=== PATIENT | female | born 1970 | race Caucasian/White ===

== ENCOUNTER 2019-10-19 13:10 | Observation (INO) ==
[2019-10-19 12:20] LABS: HEMATOCRIT 39.8 % (37.0-47.0); HEMOGLOBIN 13.2 g/dL (12.0-16.0); MCHC 33.2 g/dL (33-37); MCV 96.6 FL (81-99); MPV 10.3 FL (7.4-10.4); RBC 4.12 XMIL (4.2-5.4); RDW 12.8 % (11.5-14.5); WBC 7.54 X1000 (4.8-10.8)
[2019-10-19 12:39] LABS: INR 0.92; PROTIME 12.8 Seconds (11.0-16.0)
[2019-10-19 12:41] LABS: AGAP 11; ALKALINE PHOSPHATASE 99 U/L (32-104); AMYLASE 67 U/L (20-200); BUN 14 mg/dL (8-22); CALCIUM 8.9 mg/dL (8.8-10.2); CHLORIDE 99 mmol/L (98-107); COSMO 270; CREATININE 0.5 mg/dL (0.5-0.9); ESTIMATED GFR > 60; GLUCOSE 88 mg/dL (70-104); GOT 21 U/L (10-30); GPT 16 U/L (10-36); LIPASE 19 U/L (13-60); POTASSIUM 4.6 mmol/L (3.5-5.1); SODIUM 135 mmol/L (136-145); TCO2 24 mmol/L (25-35); TOTAL PROTEIN 7.1 g/dL (6.3-8.3)
[2019-10-19 12:50] LABS: URINE SOURCE CLEAN CATCH
[2019-10-19 12:57] LABS: BILIRUBIN URINE NEGATIVE (NEGATIVE); BLOOD URINE NEGATIVE (NEGATIVE); COLOR YELLOW; GLUCOSE URINE NEGATIVE (NEGATIVE); KETONE URINE NEGATIVE (NEGATIVE); LEUKOCYTES URINE NEGATIVE (NEGATIVE); NITRITE URINE NEGATIVE (NEGATIVE); PH URINE 6.5; PROTEIN URINE TRACE mg/dL (NEGATIVE); SP GRAVITY URINE 1.028; TURBIDITY URINE HAZY (CLEAR); UROBILINOGEN URINE NORMAL (NORMAL)
[2019-10-19 12:58] LABS: UR EPITHELIAL CELLS >10 /HPF (<10); URINE BACTERIA 1+ /HPF; URINE RBC <10 /HPF (<10); URINE WBC <10 /HPF (<10)
[~2019-10-19 13:10] MED LIST: ATARAX PO PRN; BENTYL PO PRN; D5W 1,000 ML IV PRN; DESYREL PO PRN; DULCOLAX PR PRN; IMODIUM PO PRN; LIBRIUM PO PRN; MAALOX PLUS LIQUID PO PRN; MOTRIN PO PRN; NICODERM PATCH TD PRN; NICOTINE GUM BUCCAL PRN; PHENOBARBITAL IV PRN; SENOKOT PO PRN; SINEMET 25/100 PO PRN; TUBERSOL ID ONE; TYLENOL PO PRN; ZOFRAN IM PRN; ZOFRAN IV PRN; ZOFRAN ODT PO PRN
[2019-10-19 13:15] LABS: UR AMPHETAMINES QUAL PRESUMPTIVE POSITIVE (NONE DETECT); UR BARBITUATES QUAL NONE DETECTED (NONE DETECT); UR BENZODIAZEPIN QUAL NONE DETECTED (NONE DETECT); UR CANNABINOIDS QUAL PRESUMPTIVE POSITIVE (NONE DETECT); UR COCAINE QUAL NONE DETECTED (NONE DETECT); UR METHADONE QUAL NONE DETECTED (NONE DETECT); UR METHAMPHETAMINE QUAL PRESUMPTIVE POSITIVE (NONE DETECT); UR OPIATES QUAL PRESUMPTIVE POSITIVE (NONE DETECT); UR OXYCODONE QUAL NONE DETECTED (NONE DETECT); UR PCP QUAL NONE DETECTED (NONE DETECT); UR PROPOXYPHENE QUAL NONE DETECTED (NONE DETECT); UR TCA QUAL NONE DETECTED (NONE DETECT)
[2019-10-19] MEDS: SUBOXONE 2 MG/0.5 MG FILM SL SCH (13:46)
[2019-10-19] MEDS: ROBAXIN PO PRN ×2 (13:46→22:42)
[2019-10-19] MEDS: KLONOPIN PO SCH ×2 (14:24→20:47)
[2019-10-19] MEDS: WELLBUTRIN SR PO SCH (20:47)
[2019-10-19] MEDS: SEROQUEL PO PRN (22:42)
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
[2019-10-20] MEDS: SUBOXONE 2 MG/0.5 MG FILM SL SCH ×2 (02:17→14:27)
[2019-10-20] MEDS: PRILOSEC PO SCH ×2 (06:03→09:23)
[2019-10-20] MEDS ORDERED: PROTONIX PO SCH (07:00)
[2019-10-20] MEDS: THERA M PLUS PO SCH (08:46)
[2019-10-20] MEDS: VITAMIN B-1 PO SCH (08:46)
[2019-10-20] MEDS: FOLIC ACID PO SCH (08:46)
[2019-10-20] MEDS: CELEXA PO SCH (08:47)
[2019-10-20] MEDS: KLONOPIN PO SCH ×3 (08:47→21:54)
[2019-10-20 19:35] VITALS: BP 151/75
[2019-10-20] MEDS: WELLBUTRIN SR PO SCH (21:54)
[2019-10-20] MEDS: SEROQUEL PO PRN (21:55)
--- NOTE | 2019-10-20 23:39 | PROGRESS NOTE ---
DATE: 10/20/2019 SUBJECTIVE: The patient overall notes that she is doing a little bit better, still having some symptoms, but much improved. Denies any fevers or chills. OBJECTIVE: General: She is awake, alert. She is pleasant. HEENT: Normocephalic. Neck: Supple. Cardiovascular: Regular rate. Chest: Clear. Abdomen: Soft. Extremities: Moves all extremities. Vitals: Temp 97 degrees, pulse 60, respiratory rate 18, BP 169/51. ASSESSMENT: 1. Nausea and vomiting. 2. Abdominal pain. 3. Myalgias. 4. Paresthesias. 5. Paroxysmal sweating. 6. Opiate abuse, withdrawal and stabilization. PLAN: We will continue Suboxone, she is currently on 4 mg. I expect that she will need 8 mg on discharge but, hopefully, will not have to increase [*]. We will continue counseling. Further orders as needed. cc: Carroll Jacob MD
[2019-10-21] MEDS: SUBOXONE 2 MG/0.5 MG FILM SL SCH (02:43)
[2019-10-21] MEDS: PRILOSEC PO SCH (06:19)
[2019-10-21] MEDS: ROBAXIN PO PRN (06:24)
[2019-10-21] MEDS ORDERED: CALTRATE 600 + D PO SCH (09:00)
[2019-10-21] MEDS: CELEXA PO SCH (09:13)
[2019-10-21] MEDS: FOLIC ACID PO SCH (09:13)
[2019-10-21] MEDS: KLONOPIN PO SCH (09:13)
[2019-10-21] MEDS: THERA M PLUS PO SCH (09:13)
[2019-10-21] MEDS: VITAMIN B-1 PO SCH (09:14)
[2019-10-21] MEDS ORDERED: SUBOXONE 2 MG/0.5 MG FILM SL ONE (10:38)
--- NOTE | 2019-10-21 21:20 | DISCHARGE SUMMARY ---
ADMISSION DATE: 10/19/2019 DISCHARGE DATE: 10/21/2019 DISCHARGE DIAGNOSIS: 1. Nausea, vomiting. 2. Abdominal pain. 3. Myalgias. 4. Paresthesias. 5. Paroxysmal sweating. 6. Opiate abuse withdrawal and stabilization. CONSULTATIONS: None. PROCEDURES: None. BRIEF HOSPITAL COURSE: Patient is a 49-year-old female presented to the hospital treated the usual fashion, placed on Suboxone. Counseling was performed each day by myself. On discharge she notes that although 4 mg was helping it did not last until the next dose and she was having increased cravings symptoms therefore we did increase her to 8 mg which she tolerated much better. DISPOSITION: Patient will be discharged home on Suboxone 8/ twice daily. Discussed her she needs outpatient life counseling as well as drug counseling. She needs to follow up with treatment facility of choice. She needs to avoid all persons, places, situations which she has been using abusing in the past. TIME SPENT: Greater than 30 minutes. cc: Carroll Jacob MD
== END 2019-10-21 11:51 | disposition home or self-care (01) ==
LOC: DIRADM 13:10 → P.MEDSURG 13:10
PROVIDERS: ADMIT Family Medicine; ATTEND Family Medicine